=== PATIENT | female | born 1940 | race Caucasian/White ===

== ENCOUNTER 2024-08-03 06:50 | Day surgery (SDC) | payer MEDICARE, OTHER ==
[2024-07-28 13:36] VITALS: BP 140/90
[~2024-08-03] VITALS: Ht 162.6 cm; Wt 82.7 kg
[~2024-08-03 06:50] MED LIST: ARNUITY ELLIPT50 MCG INH; ASPERCREME85 GM TOP; ASPIRIN81 MG PO; AVAPRO75 MG PO; CLARITIN10 MG PO; CO Q-10100 MG PO; EXCEDRIN EXTRA1 EAC1 PO; FISH OIL 1,001000 MG PO; FLAXSEED1000 MG PO; GARLIPURE600 MG PO; HYDROCODON-ACE1 EA10 PO; ISOSORBIDE MONO30 MG PO; LACTATED RINGER'S 1,000 ML IV SCH; MAGNESIUM400 MG PO; METFORMIN HCL500 M2 PO; METOPROLOL SUC100 MG PO; MIRALAX17 GM PO; MULTI VITAMIN1 EACH PO; OZEMPIC1 MG/0.71 SUB-Q; PEPCID40 MG PO; PLAVIX75 MG PO; PRAVASTATIN SOD10 MG PO; RECLAST 55 MG/100 M IV; SODIUM CHLORIDE 0.9% 1,000 ML IV ONE; TYLENOL EXTRA500 MG PO; VENTOLIN HFA18 GM INH; VITAMIN B COMP1 EACH PO; VITAMIN D3125 MC1 PO; VOLTAREN ARTHRI20 GM TOP
[2024-08-03] MEDS ORDERED: TRANEXAMIC ACID IN NACL,ISO-OS 1,000 MG/100 ML PIGGYBACK IV SCH ×2 (07:00→12:00)
[2024-08-03] MEDS ORDERED: OXYCODONE HCL 5 MG TAB PO SCH (07:00)
[2024-08-03] MEDS ORDERED: ondansetron HCL 4 MG TAB PO SCH (07:00)
[2024-08-03] MEDS ORDERED: IBLOOD GLUCOSE TEST STRIP 1 EA TEST VI PRN ×2 (07:00→10:30)
[2024-08-03] MEDS ORDERED: GABAPENTIN 600 MG TAB PO SCH (07:00)
[2024-08-03] MEDS ORDERED: CEFAZOLIN SODIUM 2 GM/20 ML SYR IV SCH ×2 (07:00→16:00)
[2024-08-03] MEDS ORDERED: INTRA-ARTICULAR ANALGESIC INJECTION XX SCH (07:00)
[2024-08-03] MEDS ORDERED: PANTOPRAZOLE SODIUM 40 MG TABEC PO SCH (07:00)
[2024-08-03] MEDS ORDERED: LIDOCAINE HCL 1% 5 ML SDV INJ ONE (07:00)
[2024-08-03 07:13] VITALS: BP 154/79
--- NOTE | 2024-08-03 07:29 | NUR ---
PT NOT AVAILABLE FOR VISIT. PROVIDED PRAYER.
[2024-08-03] MEDS ORDERED: MUCINEX600 MG PO (07:30)
[2024-08-03] MEDS ORDERED: propofoL 200 MG/20 ML VIAL ONE ×3 (08:06→10:29)
[2024-08-03] MEDS ORDERED: ondansetron HCL 4 MG/2 ML VIAL ONE (08:06)
[2024-08-03] MEDS ORDERED: LIDOCAINE HCL 2% 5 ML SDV ONE (08:06)
[2024-08-03] MEDS ORDERED: BUPIVACAINE 0.75% IN DEXTROSE 2 ML AMP ONE (08:07)
[2024-08-03] MEDS ORDERED: OXYCODONE HCL 5 MG TAB PO PRN (08:45)
[2024-08-03] MEDS ORDERED: ondansetron HCL 4 MG/2 ML VIAL IV PRN ×2 (08:45→10:30)
[2024-08-03] MEDS ORDERED: KETOROLAC TROMETHAMINE 15 MG/ML VIAL IV PRN (08:45)
[2024-08-03] MEDS ORDERED: ASPIRIN 325 MG TAB PO SCH (09:00)
[2024-08-03] MEDS ORDERED: fentaNYL citrate 100 MCG/2 ML VIAL ONE (09:59)
[2024-08-03] MEDS ORDERED: TRANEXAMIC ACID 1,000 MG/10 ML AMP ONE (10:10)
[2024-08-03] MEDS ORDERED: ACETAMINOPHEN 1,000 MG/100 ML VIAL ONE (10:20)
[2024-08-03] MEDS ORDERED: fentaNYL citrate 50 MCG/ML SDV IV PRN (10:30)
[2024-08-03] MEDS ORDERED: HYDROmorphone HCL 1 MG/ML SYR IV PRN (10:30)
[2024-08-03] MEDS ORDERED: NALOXONE HCL 0.4 MG SYR IV PRN (10:30)
[2024-08-03] MEDS ORDERED: PROCHLORPERAZINE EDISYLATE 10 MG/2 ML VIAL IV PRN (10:30)
[2024-08-03] MEDS ORDERED: droPERidol 5 MG/2 ML VIAL IV PRN (10:30)
[2024-08-03] MEDS ORDERED: OXYCODONE HCL5 MG PO (11:21)
[2024-08-03] MEDS ORDERED: GABAPENTIN300 MG PO (11:21)
--- NOTE | 2024-08-03 11:46 | NUR ---
08/03/24 1146 Trisha Pulido 1125-PT ARRIVES TO PACU VIA STRETCHER, RESTING SEMI FOWLERS. PT RESPONSIVE TO TACTILE STIMULI, BUT RESTING W/ EYES CLOSED. VSS ON 6L VIA MASK, RR EVEN AND UNLABORED. 1130-PT AWAKENS ON OWN, TITRATED TO RA, VS REMAIN STABLE. PT DENIES PAIN OR NAUSEA. 1138-CLAIMS SUPERVISOR AT BEDSIDE FOR POST OP X-RAY OF RT HIP. 1140-CRYO CUFF APPLIED TO RT HIP PER ORDER.
--- NOTE | 2024-08-03 11:55 | NUR ---
1155- PT ARRIVES TO DAY SURGERY ROOM 6 FROM PACU. BREATHING IS EVEN AND ULABORED. PT IS SITTING UP IN THE STRETCHER AND TALKING WITH NURSE AND FAMILY. VS OBTAINED. PT DENIES PAIN AND NAUSEA. PLAN OF CARE DISCUSSED. PT IS AGREEABLE AND DENIES QUESTIONS OR CONCERNS. SURGICAL SITE ASSESSED WITH PACU NURSE THAT IS CDI. BED IN LOWEST POSITION, CALL LIGHT IN REACH. PT PROVIDED WITH WATER AND SUGAR FREE VANILLA PUDDING. CRYOCUFF PLUGGED IN AND RUNNING.
[2024-08-03 11:57] VITALS: BP 138/71
[2024-08-03 13:00] VITALS: BP 168/75
--- NOTE | 2024-08-03 13:22 | NUR ---
1300- VS OBTAINED. PT REPORTS TINGLING IN HER LEFT FOOT AND HER RIGHT FOOT IS NUMB. PT TOLERATED PUDDING AND WATER WELL. PT DENIES PAIN AND NAUSEA. RN MASSAGING HER LEFT FOOT AND WARM BLANKETS PROVIDED PER PT REQUEST. BED IN LOWEST POSITION AND LOCKED AND CALL LIGHT IN REACH. CRYO CUFF IN PLACE. SMALL AMOUNT OF SHADOWING NOTED ON THE UPPER DRESSING.
--- NOTE | 2024-08-03 13:30 | NUR ---
Spoke with Dr Obando about administering Aspirin that is ordered. Dr. Obando reports that he does NOTwant patient to receive the aspirin today. They are to start medication tomorrow.
[2024-08-03 13:56] VITALS: BP 144/65
--- NOTE | 2024-08-03 14:01 | NUR ---
Hourly rounding on patient. Patient reports that her pain is well controlled and reports it a 0/10. Dressing to right hip is intact, scant amount of shadowing to superior dressing, but not changed since last assessment. She denies nausea/vomiting. Family brought her food to eat. Cryo-cuff in place. Spinal is resolving and she only reports some numbness to the bottom of her right foot. bed in lowest position, call light within reach. She mikael any other needs at this time.
--- NOTE | 2024-08-03 14:51 | NUR ---
Physical therapy in to assess patient at this time
[2024-08-03] MEDS ORDERED: GABAPENTIN 300 MG CAP PO SCH (15:00)
[2024-08-03] MEDS ORDERED: ACETAMINOPHEN 500 MG TAB PO SCH (15:00)
[2024-08-03 15:55] VITALS: BP 138/69
--- NOTE | 2024-08-03 16:20 | NUR ---
1601- GABAPENTIN GIVEN, SEE EMAR. 1603- ANCEF GIVEN, SEE EMAR AND FLUSHED WITH 10 ML OF SALINE. PT AND FAMILY QUESTIONS AND CONCERNS ANSWERED. 1615- PT IV REMOVED AT THIS TIME. TIP INTACT. PT OFFERED IS, AND PT DECLINES AND REPORTS THAT SHE HAS "THREE AT HOME". PT ENCOURAGED TO USE THEM AT HOME. 1620- VS OBTAINED. DC INSTRUCTIONS GIVEN AND PT DENIES QUESTIONS OR CONCERNS. PT DENIES PAIN AND NAUSEA. PT ABLE TO DRESS WITH THE HELP OF FAMILY. PT IS ABLE TO AMBULATE WITH THE USE OF A FRONT WHEELED WALKER FROM THE STRETCHER TO THE WHEELCHAIR. PT DC FROM DAY SURGERY WITH ALL BELONGINGS AND PAPERWORK AND CRYO-CUFF.
[2024-08-03] MEDS ORDERED: SENNOSIDES 1 TAB PO SCH (21:00)
--- NOTE | 2024-08-04 07:42 | OR ---
[facility] [address], [place] [address] Signed DATE OF OPERATION: 08/03/2024 SURGEON: Sandi Obando MD PREOPERATIVE DIAGNOSIS: Right hip degenerative joint disease. POSTOPERATIVE DIAGNOSIS: Right hip degenerative joint disease. PROCEDURE PERFORMED: Right total hip arthroplasty with Galen. INTERNET SPECIALIST: Qi Sauceda PA-C. Qi was present, critical for all portions of procedure. ANESTHESIA: Spinal. BLOOD LOSS: 200 mL. IMPLANTS: [employer]ur[employer]Fit advanced size eight with a 52 mm cup and a +2.5 ceramic head. BRIEF HISTORY: Ghislaine is an 83-year-old female with progressive worsening of arthritis in both hips, right worse than left. Risks and benefits of operative treatment were discussed with her and she elected to proceed. DESCRIPTION OF PROCEDURE: Once consent was obtained she was taken to the operating room. After adequate anesthesia she was placed in left lateral decubitus position. All downside pressure points were well padded. An axillary roll was placed. The right hip was then prepped and draped in a standard sterile fashion. The two pins for the Galen array were placed in the posterior iliac crest. The hip was then approached through standard anterior lateral approach carried through skin and subcutaneous tissue. IT band was divided longitudinally. The vastus lateralis was divided from the tip of the trochanter along the anterior margin of the femur distally and elevated subperiosteally to the level of the lesser trochanter. The gluteus minimus and capsule were then split from the Electronically Signed By: SANDI OBANDO MD 08/04/24 0742 PATIENT NAME: GHISLAINE MCDERMOTT OPERATIVE REPORT DATE OF : 38 REPORT #: [id number] PHYSICIAN: SANDI OBANDO MD PCP: IRVING PHILLIPS REPORT IS CONFIDENTIAL AND NOT TO BE RELEASED WITHOUT AUTHORIZATION [facility] [address], [place] [address] Signed trochanter to the acetabular rim and elevated off the femoral neck. Two large loose bodies were removed. The leg was then registered with the computer and the hip was dislocated. Femoral neck cut made one fingerbreadth above the lesser trochanter. The femoral head was passed to the back table and saved for bone grafting as necessary. Periacetabular soft tissue was then removed and the acetabulum was registered with the computer. The robot was then brought and the acetabulum was reamed. When we went to put the cup in, I did not like the anteversion of the robot, so I switched to a manual insertion, inserted the cup until it was fully seated against the depths of the acetabular reaming. We then placed two screws in the posterior superior quadrant and impacted the liner until it was well-seated and locked. Attention was then turned to proximal femur. Proximal femur was opened using the [employer] cutter followed by the Maricruz awl. The lateralized reamer was then used and the femur was then broached sequentially up to an eight, which was found to be quite well fitting. The eight was left in position with a standard offset neck and initially a +0, then a +2.5 head. A +2.5 head showed good leg lengths, good stability and negative Shuck test. The hip was then dislocated after taken through range of motion of 100 degrees of flexion and 20 of internal and external rotation. The trials were then removed. The final stem was impacted to the patella, was seated stable at the same level as the broach. The +2.5 was then placed on the trunnion after cleaning it well. The hip was again reduced, taken through range of motion and found to be stable with no impingement. The hip was then irrigated with one bottle of Surgiphor followed by normal saline. The periarticular soft tissues were injected with 80 mL of Toradol and ropivacaine mixture. The capsule was then closed using #2 FiberWire. The vastus and IT band layers were closed independently using #2 Stratafix. The subcutaneous tissue was closed with 0 Stratafix and the skin with 3-0. Wound was dressed with an Acticoat-7 dressing. She was taken to the recovery room in satisfactory condition. All sponge, needle, and instrument counts were correct. Sandi Obando MD BA/MODL /[id number] Electronically Signed By: SANDI OBANDO MD 08/04/24 0742 PATIENT NAME: GHISLAINE MCDERMOTT OPERATIVE REPORT DATE OF : 38 REPORT #: [id number] PHYSICIAN: SANDI OBANDO MD PCP: IRVING PHILLIPS REPORT IS CONFIDENTIAL AND NOT TO BE RELEASED WITHOUT AUTHORIZATION [address] [address] Signed Copies: ~ Electronically Signed By: SANDI OBANDO MD 08/04/24 0742 PATIENT NAME: GHISLAINE MCDERMOTT KIARA OPERATIVE REPORT DATE OF : 38 REPORT #: [id number] PHYSICIAN: SANDI OBANDO MD PCP: IRVING PHILLIPS REPORT IS CONFIDENTIAL AND NOT TO BE RELEASED WITHOUT AUTHORIZATION
== END 2024-08-03 16:20 | disposition home or self-care (01) ==
LOC: DS 06:50
PROVIDERS: ATTEND Specialist
PROC: 0SR903Z Replacement of Right Hip Joint with Ceramic Synthetic Substitute, Open Approach (ICD-10-PCS; principal; 2024-08-03 09:05)
DX: M16.0 Bilateral primary osteoarthritis of hip (principal); M51.372 Other intervertebral disc degeneration, lumbosacral region with discogenic back pain and lower extremity pain; M81.0 Age-related osteoporosis without current pathological fracture; I25.10 Atherosclerotic heart disease of native coronary artery without angina pectoris; E78.2 Mixed hyperlipidemia; J45.20 Mild intermittent asthma, uncomplicated; I12.9 Hypertensive chronic kidney disease with stage 1 through stage 4 chronic kidney disease, or unspecified chronic kidney disease; E11.22 Type 2 diabetes mellitus with diabetic chronic kidney disease; N18.31 Chronic kidney disease, stage 3a; Z79.84 Long term (current) use of oral hypoglycemic drugs; Z79.85 Long-term (current) use of injectable non-insulin antidiabetic drugs; Z79.02 Long term (current) use of antithrombotics/antiplatelets; Z79.899 Other long term (current) drug therapy; Z95.5 Presence of coronary angioplasty implant and graft; Z88.0 Allergy status to penicillin; Z88.2 Allergy status to sulfonamides; Z88.4 Allergy status to anesthetic agent; Z88.6 Allergy status to analgesic agent; Z88.8 Allergy status to other drugs, medicaments and biological substances
CPT/HCPCS: 01214; 72170; 97161; A9270; C1713; C1776; J0131; J0690; J2003; J2405; J2704; J3010; J7030; J7121